=== PATIENT | male | born 1960 | race African-American/Black ===

== ENCOUNTER 2020-10-16 16:15 | Emergency (ER) | payer OTHER ==
[~2020-10-16] VITALS: Ht 177.8 cm; Wt 95.3 kg
[2020-10-16] MEDS ORDERED: GABAPENTIN300 M2 PO (16:30)
[2020-10-16] MEDS ORDERED: LANTUS SOL100 UNIT/1 SQ (16:30)
[2020-10-16] MEDS ORDERED: ELIQUIS5 MG PO (16:30)
[2020-10-16] MEDS ORDERED: CARVEDILOL ER80 MG PO (16:30)
[2020-10-16] MEDS ORDERED: LISINOPRIL20 MG PO (16:30)
[2020-10-16] MEDS ORDERED: KETO10TA2 PO (20:12)
[2020-10-16] MEDS ORDERED: NORFLEX100MG PO (20:12)
== END 2020-10-16 20:20 | disposition home or self-care (01) ==
LOC: ER 16:15
DX: R07.89 Other chest pain (principal)